=== PATIENT | female | born 2005 ===

== ENCOUNTER 2024-01-20 08:35 | Outpatient (REF) | payer OTHER, SELFPAY ==
--- NOTE | ~2024-01-20 | US_ITS ---
EXAMINATION: US RETROPERITONEAL COMPLETE (RENAL) CLINICAL INFORMATION: Gross hematuria. COMPARISON: None available. TECHNIQUE: Real-time imaging of the kidneys and bladder. FINDINGS: RIGHT KIDNEY: 11.5 x 3.9 x 6.2 cm (SAG x AP x TRV). The kidney is normal in size, contour, and echogenicity. Renal cortical thickness is normal. No calculi or focal parenchymal lesions. No hydronephrosis. LEFT KIDNEY: 11.2 x 4.3 x 5.7 cm (SAG x AP x TRV). The kidney is normal in size, contour, and echogenicity. Renal cortical thickness is normal. No calculi or focal parenchymal lesions. No hydronephrosis. BLADDER: Well distended and normal. Bilateral ureteral jets are not demonstrated likely due to overdistended bladder. Prevoid bladder volume is 825 mL. Postvoid bladder volume is 0 mL. US/US retroperitoneal comp IMPRESSION: 1. Normal appearance of the kidneys. 2. No post void residual.
== END 2024-01-20 08:36 | disposition home or self-care (01) ==
LOC: HO.UMASIMG 08:35
PROVIDERS: Visit Provider Family Medicine
DX: R31.9 Hematuria, unspecified (principal); Z11.3 Encounter for screening for infections with a predominantly sexual mode of transmission
CPT/HCPCS: 76770